=== PATIENT | female | born 1995 | race Caucasian/White ===

== ENCOUNTER 2019-02-02 14:51 | Emergency (ER) | payer OTHER ==
[~2019-02-02] VITALS: Ht 170.2 cm; Wt 52.2 kg
[2019-02-02 15:34] LABS: BILIRUBIN,URINE NEGATIVE (NEGATIVE); CLARITY,URINE MUCOUS; COLOR,URINE YELLOW; GLUCOSE, URINE (UA) NEGATIVE (NEGATIVE); KETONES,URINE 4+ (NEGATIVE); LEUKOCYTE ESTERASE ,URINE 2+ (NEGATIVE); NITRITE,URINE NEGATIVE (NEGATIVE); PH,URINE 5 (5-9); PROTEIN,URINE 3+ (NEGATIVE); UROBILINOGEN,URINE NORMAL (NORMAL)
[2019-02-02 15:56] LABS: AMPHETAMINE SCREEN, URINE NEGATIVE (NEGATIVE); BARBITURATE SCREEN URINE NEGATIVE (NEGATIVE); BENZODIAZEPINES SCREEN URINE NEGATIVE (NEGATIVE); CANNABINOID SCREEN, URINE POSITIVE (NEGATIVE); COCAINE SCREEN URINE NEGATIVE (NEGATIVE); METHADONE STAT NEGATIVE (NEGATIVE); METHAMPHETAMINE SCREEN URINE S NEGATIVE (NEGATIVE); OPIATE SCREEN URINE NEGATIVE (NEGATIVE); OXYCODONE STAT NEGATIVE (NEGATIVE); PROPOXYPHENE STAT NEGATIVE (NEGATIVE); TRICYCLIC ANTIDEPRESSANTS SCRE NEGATIVE (NEGATIVE)
[2019-02-02 16:01] LABS: BACTERIA,URINE LARGE /HPF; SQUAMOUS EPITHELIAL CELL,UR 25-50 /HPF
[2019-02-02] MEDS ORDERED: NS IV 1000 ML 1,000 ML IV SCH (16:04)
[2019-02-02 16:51] LABS: BASOPHILS % (AUTO) 0 % (0-10); EOSINOPHILS % (AUTO) 0 % (0-10); HEMATOCRIT 36 % (35-52); LYMPHOCYTES # (AUTO) 0.9 X 10^3 (1.0-4.0); LYMPHOCYTES % (AUTO) 7 % (12-44); MEAN CORPUSCULAR HEMOGLOBIN 29 PG (25-34); MEAN CORPUSCULAR HGB CONC 33 G/DL (32-36); MEAN CORPUSCULAR VOLUME 89 FL (80-99); MEAN PLATELET VOLUME 10.4 FL (7.4-10.4); MONOCYTES # (AUTO) 0.8 X 10^3 (0.0-1.0); MONOCYTES % (AUTO) 6 % (0-12); NEUTROPHILS # (AUTO) 11.2 X 10^3 (1.8-7.8); NEUTROPHILS % (AUTO) 87 % (42-75); PLATELET COUNT 213 10^3/uL (130-400); RED CELL DISTRIBUTION WIDTH 14.3 % (10.0-14.5); WHITE BLOOD COUNT 12.9 10^3/uL (4.3-11.0)
--- NOTE | 2019-02-02 16:58 | ED GI ---
General Chief Complaint: Abdominal/GI Problems Stated Complaint: ABD PAIN Nursing Triage Note: AMBULATED TO TRIAGE ET HYPERVENTILATING. STATES HER PERIOD STARTED TODAY AND SHE IS HURTING VERY BAD AND NEEDS PAIN MEDS. STATES SHE TOOK IBUPROFEN 600MG APPX 2HR [employer]. Sepsis Screen: No Definite Risk History of Present Illness Date Seen by Provider: February 02, 2019 Time Seen by Provider: 15:15 Initial Comments 23-year-old female presents for generalized abdominal pain, nausea and diarrhea. She reports recurrent UTIs over the last 3-4 months, she refuses take any further antibiotics as she gets the infection extends time she takes. She reports using marijuana, smoking 3 joints a day. She also reports a chronic history of anxiety and depression. She denies any suicidal or homicidal thoughts. She's had medications in the past that she is unsure of the names. She has been seen for mental health in [place] in [place]. She also was recently seen by an ALIGNING CHECKER and had a Pap and pelvic done, she denies history of STI's. She denies painful intercourse. She reports that she uses marijuana for her anxiety and pain. Timing/Duration: 12-24 Hours Severity/Quality: Mild Location: Generalized Abdomen Radiation: No Radiation Activities at Onset: None Allergies and Home Medications Allergies Coded Allergies: Penicillins (Verified Allergy, Severe, HIVES, 02/02/19) Home Medications Ciprofloxacin HCl 500 Mg Tablet, 500 MG PO BID Prescribed by: APOLLO GARDUNO on 02/02/19 4808 Fluconazole 150 Mg Tablet, 150 MG PO 3 days Take 1 tablet every 3 days. Prescribed by: APOLLO GARDUNO on 02/02/19 0026 Patient Home Medication List Home Medication List Reviewed: Yes Review of Systems Review of Systems Constitutional: no symptoms reported, see HPI Genitourinary: See HPI, Frequency, Pain, Urgency All Other Systems Reviewed Negative Unless Noted: Yes Past Gnezvur-Igxfca-Jvbqks Hx Past Med/Social Hx: Reviewed Nursing Past Med/Soc Hx Patient Social History Alcohol Use: Denies Use Recreational Drug Use: Yes Drug of Choice: MARIJUANA 3X DAY Smoking Status: Current Everyday Smoker Recent Foreign Travel: No Contact w/Someone Who Travel: No Recent Infectious Disease Expo: No Recent Hopitalizations: No Physical Abuse: No Sexual Abuse: No Mistreated: No Fear: No Seasonal Allergies Seasonal Allergies: No Past Medical History Surgeries: No Respiratory: No Cardiac: No Neurological: No : No Last Menstrual Period: February 02, 2019 Genitourinary: No Gastrointestinal: No Musculoskeletal: No Endocrine: No HEENT: No Cancer: No Psychosocial: No Integumentary: No Physical Exam Vital Signs Vital Signs - First Documented 02/02/19 15:04 Temp 98.7 Pulse 54 Resp 16 B/P (MAP) 93/48 (63) Pulse Ox 100 O2 Delivery Room Air Capillary Refill : Less Than 3 Seconds Height/Weight/BMI Height: 5'7.00" Weight: 115lbs. oz. 52.998194qb; BMI Method:Stated General Appearance: WD/WN, no apparent distress Neck: non-tender, full range of motion, supple, normal inspection Respiratory: chest non-tender, lungs clear, normal breath sounds Cardiovascular: normal peripheral pulses, regular rate, rhythm Gastrointestinal: normal bowel sounds, non tender, soft; No distended, No guarding, No rebound, No tenderness Neurologic/Psychiatric: no motor/sensory deficits, alert, normal mood/affect ( no acute depression or anxiety), oriented x 3 Skin: normal color, warm/dry Progress/Results/Core Measures Results/Orders Lab Results Laboratory Tests Test 02/02/19 15:18 02/02/19 16:44 Range/Units Urine Color YELLOW Urine Clarity MUCOUS Urine pH 5 5-9 Urine Specific [place] 1.030 H 1.016-1.022 Urine Protein 3+ H NEGATIVE Urine Glucose (UA) NEGATIVE NEGATIVE Urine Ketones 4+ H NEGATIVE Urine Nitrite NEGATIVE NEGATIVE Urine Bilirubin NEGATIVE NEGATIVE Urine Urobilinogen NORMAL NORMAL MG/DL Urine Leukocyte Esterase 2+ H NEGATIVE Urine RBC (Auto) 5+ H NEGATIVE Urine RBC 2-5 H /HPF Urine WBC 10-25 H /HPF Urine Squamous Epithelial Cells 25-50 H /HPF Urine Crystals NONE /LPF Urine Bacteria LARGE H /HPF Urine Casts NONE /LPF Urine Mucus LARGE H /LPF Urine Culture Indicated YES Urine Opiates Screen NEGATIVE NEGATIVE Urine Oxycodone Screen NEGATIVE NEGATIVE Urine Methadone Screen NEGATIVE NEGATIVE Urine Propoxyphene Screen NEGATIVE NEGATIVE Urine Barbiturates Screen NEGATIVE NEGATIVE Ur Tricyclic Antidepressants Screen NEGATIVE NEGATIVE Urine Phencyclidine Screen NEGATIVE NEGATIVE Urine Amphetamines Screen NEGATIVE NEGATIVE Urine Methamphetamines Screen NEGATIVE NEGATIVE Urine Benzodiazepines Screen NEGATIVE NEGATIVE Urine Cocaine Screen NEGATIVE NEGATIVE Urine Cannabinoids Screen POSITIVE H NEGATIVE White Blood Count 12.9 H 4.3-11.0 10^3/uL Red Blood Count 4.09 L 4.35-5.85 10^6/uL Hemoglobin 12.0 11.5-16.0 G/DL Hematocrit 36 35-52 % Mean Corpuscular Volume 89 80-99 FL Mean Corpuscular Hemoglobin 29 25-34 PG Mean Corpuscular Hemoglobin Concent 33 32-36 G/DL Red Cell Distribution Width 14.3 10.0-14.5 % Platelet Count 213 130-400 10^3/uL Mean Platelet Volume 10.4 7.4-10.4 FL Neutrophils (%) (Auto) 87 H 42-75 % Lymphocytes (%) (Auto) 7 L 12-44 % Monocytes (%) (Auto) 6 0-12 % Eosinophils (%) (Auto) 0 0-10 % Basophils (%) (Auto) 0 0-10 % Neutrophils # (Auto) 11.2 H 1.8-7.8 X 10^3 Lymphocytes # (Auto) 0.9 L 1.0-4.0 X 10^3 Monocytes # (Auto) 0.8 0.0-1.0 X 10^3 Eosinophils # (Auto) 0.0 0.0-0.3 10^3/uL Basophils # (Auto) 0.0 0.0-0.1 10^3/uL Neutrophils % (Manual) 90 % Lymphocytes % (Manual) 7 % Monocytes % (Manual) 3 % Eosinophils % (Manual) 0 % Basophils % (Manual) 0 % Band Neutrophils 0 % Blood Morphology Comment NORMAL Sodium Level 140 135-145 MMOL/L Potassium Level 3.6 3.6-5.0 MMOL/L Chloride Level 110 H 98-107 MMOL/L Carbon Dioxide Level 24 21-32 MMOL/L Anion Gap 6 5-14 MMOL/L Blood Urea Nitrogen 11 7-18 MG/DL Creatinine 0.78 0.60-1.30 MG/DL Estimat Glomerular Filtration Rate > 60 BUN/Creatinine Ratio 14 Glucose Level 83 70-105 MG/DL Calcium Level 9.4 8.5-10.1 MG/DL Corrected Calcium 9.1 8.5-10.1 MG/DL Total Bilirubin 0.5 0.1-1.0 MG/DL Aspartate Amino Transf (AST/SGOT) 14 5-34 U/L Alanine Aminotransferase (ALT/SGPT) 13 0-55 U/L Alkaline Phosphatase 39 L 40-136 U/L Total Protein 7.3 6.4-8.2 GM/DL Albumin 4.4 3.2-4.5 GM/DL My Orders Orders - APOLLO GARDUNO Urine Bedside (02/02/19 14:54) Ua Culture If Indicated (02/02/19 14:54) Drug Screen Stat (Urine) (02/02/19 15:32) Urine Culture (02/02/19 15:18) Cbc With Automated Diff (02/02/19 16:04) Comprehensive Metabolic Panel (02/02/19 16:04) Ed Iv/Invasive Line Start (02/02/19 16:04) Ns Iv 1000 Ml (Sodium Chloride 0.9%) (02/02/19 16:04) Ondansetron Injection (Zofran Injectio (02/02/19 17:00) Manual Differential (02/02/19 16:44) Medications Given in ED Current Medications Medications Dose Ordered Sig/Jordi Route Start Time Stop Time Status Last Admin Dose Admin Ondansetron HCl 4 mg ONCE ONCE IVP 02/02/19 17:00 02/02/19 17:01 DC 02/02/19 17:04 4 MG Vital Signs/I&O 02/02/19 02/02/19 15:04 18:00 Temp 98.7 97.6 Pulse 54 50 Resp 16 18 B/P (MAP) 93/48 (63) 105/62 (76) Pulse Ox 100 99 O2 Delivery Room Air Blood Pressure Mean: 63 Progress Progress Note : Time: 15:15 Progress Note Patient seen and evaluated, will obtain labs and reevaluate. Zofran 4 mg IV for nausea 1600 patient has 4+ ketones in urine, will give 1 L normal saline per IV. Patient taking second cup of water. 1630 took 6 attempts to obtain IV. 1730 patient reports symptoms are improving, discharge instructions and return precautions reviewed with her. Will give Diflucan along with antibiotic to prevent yeast infection. Departure Impression Primary Impression: Diarrhea Qualified Codes: R19.7 - Diarrhea, unspecified Additional Impressions: Premenstrual syndrome UTI (urinary tract infection) Qualified Codes: N30.01 - Acute cystitis with hematuria Disposition: HOME, SELF-CARE Condition: Improved Departure-Patient Inst. Decision time for Depature: 17:30 Referrals: NO,LOCAL PHYSICIAN (PCP/Family) Primary Care Physician Patient Instructions: Acute Abdomen (Belly Pain), Adult (DC), Premenstrual Syndrome (PMS) and Premenstrual Dysphoric Disorder (PMDD), Urinary Tract Infection, Adult (DC) Add. Discharge Instructions: Take antibiotic as prescribed. Use the Diflucan 1 tablet every 3 days. Eat 1-2 cups of yogurt daily. Empty bladder every 2 hours while awake, drink 16 ounces of water every hour while awake. Seek counseling mental health in [place]. Discontinue or decrease uses marijuana. Follow-up with your ALIGNING CHECKER if you have persistent UTIs. Drink 1 glass of cranberry juice or eat 1 cup of fresh blueberries daily to prevent UTIs. You may take Tylenol 650 mg alternating with ibuprofen 600 mg every 4 hours for pain or fever. Return to emergency department for either greater than 101 not relieved by Tylenol or ibuprofen, acute abdominal pain, or new, urgent health care needs. All discharge instructions reviewed with patient and/or family. Voiced understanding. Scripts Fluconazole (Diflucan) 150 Mg Tablet 150 MG PO 3 days, #3 TAB 0 Refills Take 1 tablet every 3 days. Prov: APOLLO GARDUNO 02/02/19 Ciprofloxacin HCl (Ciprofloxacin HCl) 500 Mg Tablet 500 MG PO BID, #10 TAB 0 Refills Prov: APOLLO GARDUNO 02/02/19 APOLLO GARDUNO February 02, 2019 16:58
[2019-02-02] MEDS ORDERED: ONDANSETRON 4 MG/2 ML (SDV) Z0FRAN IVP ONE (17:00)
[2019-02-02 17:12] LABS: BAND NEUTROPHILS 0 %; BASOPHILS % (MANUAL) 0 %; EOSINOPHILS % (MANUAL) 0 %; LYMPHOCYTES % (MANUAL) 7 %; MONOCYTES % (MANUAL) 3 %; NEUTROPHILS % (MANUAL) 90 %; RBC MORPH NORMAL
[2019-02-02 17:15] LABS: ALANINE AMINOTRANSFERASE 13 U/L (0-55); ALBUMIN 4.4 GM/DL (3.2-4.5); ALKALINE PHOSPHATASE 39 U/L (40-136); BILIRUBIN,TOTAL 0.5 MG/DL (0.1-1.0); BUN/CREATININE RATIO 14; CALCIUM 9.4 MG/DL (8.5-10.1); CARBON DIOXIDE 24 MMOL/L (21-32); CHLORIDE 110 MMOL/L (98-107); CREATININE SERUM 0.78 MG/DL (0.60-1.30); GFR ESTIMATED > 60; GLUCOSE 83 MG/DL (70-105); POTASSIUM 3.6 MMOL/L (3.6-5.0); SODIUM 140 MMOL/L (135-145); TOTAL PROTEIN 7.3 GM/DL (6.4-8.2)
[2019-02-02] MEDS ORDERED: CIPR500T4 PO (17:32)
[2019-02-02] MEDS ORDERED: FLUC150T PO (17:33)
[2019-02-02 18:00] VITALS: BP 105/62
== END 2019-02-02 18:00 | disposition home or self-care (01) ==
LOC: ER 14:53
DX: N39.0 Urinary tract infection, site not specified (principal); N94.9 Unspecified condition associated with female genital organs and menstrual cycle; R19.7 Diarrhea, unspecified; F41.9 Anxiety disorder, unspecified; F32.9 Major depressive disorder, single episode, unspecified; F17.200 Nicotine dependence, unspecified, uncomplicated; F12.10 Cannabis abuse, uncomplicated; Z87.440 Personal history of urinary (tract) infections; Z88.0 Allergy status to penicillin
CPT/HCPCS: 36415; 80053; 80306; 81000; 84703; 85007; 85027; 87088; 96361; 96374